=== PATIENT | male | born 2000 | race African-American/Black ===

== ENCOUNTER 2025-01-24 21:25 | Emergency (ER) | payer SELFPAY | END 2025-01-24 22:04 | disposition home or self-care (01) | LOC: ER 21:29 | DX: T50.901A Poisoning by unspecified drugs, medicaments and biological substances, accidental (unintentional), initial encounter (principal); Z53.21 Procedure and treatment not carried out due to patient leaving prior to being seen by health care provider; Y92.89 Other specified places as the place of occurrence of the external cause ==